=== PATIENT | female | born 1955 | race African-American/Black ===

== ENCOUNTER 2020-03-20 04:13 | Emergency (ER) | payer OTHER, MEDICAID ==
[~2020-03-20] VITALS: Ht 170.2 cm; Wt 95.0 kg
[2020-03-20] MEDS ORDERED: ACETAMINOPHEN 325MG TABLET PO ONE (05:30)
[2020-03-20 15:00] VITALS: BP 172/97
== END 2020-03-20 15:17 | disposition home or self-care (01) ==
LOC: ER 04:13
DX: S63.502A Unspecified sprain of left wrist, initial encounter (principal); S63.501A Unspecified sprain of right wrist, initial encounter; M25.562 Pain in left knee; M25.561 Pain in right knee; E11.9 Type 2 diabetes mellitus without complications; W01.0XXA Fall on same level from slipping, tripping and stumbling without subsequent striking against object, initial encounter; Y93.89 Activity, other specified; Y92.89 Other specified places as the place of occurrence of the external cause; Y99.8 Other external cause status
CPT/HCPCS: 73110; 73560; 73600; 99284